=== PATIENT | female | born 1985 | race American Indian/Alaskan Native ===

== ENCOUNTER 2017-07-28 20:17 | Emergency (ER) | payer SELFPAY ==
--- NOTE | 2017-07-29 02:50 | Emergency Department Report ---
ED Extremity Problem HPI - General Chief complaint: Extremity Problem,Nontraumatic Stated complaint: LEFT FOOT PAIN Time Seen by Provider: 07/29/17 02:41 Source: patient, family Mode of arrival: Wheelchair Limitations: No Limitations - History of Present Illness Initial comments: Patient airport in left foot pain and denies any trauma. She said the pain is 5 out of 10 and it's located at her plantar aspect of her foot and radiated in to midfoot laterally.Denies any fever or chills. Eyes any blunt trauma to foot. She said the pain when he came on was a burning pain. Patient has a history of heart murmur and first-degree heart block. She does not have a history of diabetes or neuropathy. He took [id number] pain medication but did not help. MD Complaint: extremity pain -: This morning Location: left, lower extremity History of Same: No -: No myalgia, Yes arthralgia, No fever, No associated dyspnea, No associated chest pain Radiation: none Severity scale (0 -10): 5 Quality: burning, aching Consistency: intermittent Improves with: rest Worsens with: weight bearing, walking Associated Symptoms: arthralgias. denies: chest pain, shortness of breath, fever, myalgias, rash - Related Data Previous Rx's Medication Instructions Recorded Last Taken Type Ibuprofen [Motrin] 800 mg PO Q8HR PRN #15 tablet 12/16/15 Unknown Rx Ibuprofen [Motrin] 600 mg PO Q8H PRN #15 tablet 07/29/17 Unknown Rx Allergies Allergy/AdvReac Type Severity Reaction Status Date / Time No Known Allergies Allergy Unverified 12/16/15 16:59 ED Review of Systems ROS: Stated complaint: LEFT FOOT PAIN Other details as noted in HPI Comment: All other systems reviewed and negative Constitutional: denies: chills, fever Respiratory: no symptoms reported Cardiovascular: denies: chest pain, palpitations, edema, syncope Gastrointestinal: denies: abdominal pain, nausea, vomiting, diarrhea, constipation Musculoskeletal: back pain, arthralgia. denies: joint swelling, myalgia Skin: denies: rash Neurological: denies: headache, weakness, numbness, paresthesias, confusion, abnormal gait, vertigo ED Past Medical Hx - Past Medical History Previous Medical History?: Yes Additional medical history: HEART MURMUR. First-degree heart block - Surgical History Past Surgical History?: No - Family History Family history: no significant - Social History Smoking Status: Never Smoker Substance Use Type: None - Medications Home Medications: Home Medications Medication Instructions Recorded Confirmed Last Taken Type Ibuprofen [Motrin] 800 mg PO Q8HR PRN #15 tablet 12/16/15 Unknown Rx Ibuprofen [Motrin] 600 mg PO Q8H PRN #15 tablet 07/29/17 Unknown Rx ED Physical Exam - General Limitations: No Limitations General appearance: alert, in no apparent distress - Head Head exam: Present: atraumatic, normocephalic, normal inspection - Eye Eye exam: Present: normal appearance, PERRL, EOMI. Absent: periorbital swelling , periorbital tenderness Pupils: Present: normal accommodation - ENT ENT exam: Present: normal exam, normal orophraynx, mucous membranes moist - Neck Neck exam: Present: normal inspection, full ROM. Absent: tenderness, meningismus, lymphadenopathy - Respiratory Respiratory exam: Present: normal lung sounds bilaterally. Absent: respiratory distress, wheezes, chest wall tenderness, accessory muscle use - Cardiovascular Cardiovascular Exam: Present: regular rate, normal rhythm, normal heart sounds - GI/Abdominal GI/Abdominal exam: Present: soft, normal bowel sounds. Absent: distended, tenderness, guarding, rebound, rigid - Extremities Exam Extremities exam: Present: normal inspection, full ROM, tenderness (left foot plantar aspect ), normal capillary refill, other (all extremities with 2+ pulses. Her vascular compromise and full range of motion. No joint deformity or anomaly.). Absent: pedal edema, joint swelling, calf tenderness - Expanded Lower Extremity Exam Left Hip exam: Present: normal inspection, full ROM, pelvic stability. Absent: tenderness, swelling, abrasion, laceration, ecchymosis, deformity, crepidus, dislocation, erythema, external rotation, internal rotation, shortening Upper Leg exam: Present: normal inspection, full ROM. Absent: tenderness, swelling, abrasion, laceration, ecchymosis, deformity, crepidus, dislocation, erythema Knee exam: Present: normal inspection, full ROM, full knee extension. Absent: tenderness, swelling, abrasion, laceration, ecchymosis, deformity, crepidus, dislocation, erythema, effusion, pain w/ pronation/supination, posterior draw sign, pain/laxity with valgus, pain/laxity with varus Lower Leg exam: Present: normal inspection, full ROM. Absent: tenderness, swelling, abrasion, laceration, ecchymosis, deformity, crepidus, dislocation, erythema, palpable cord, Caridad's sign Ankle exam: Present: normal inspection, full ROM. Absent: tenderness, swelling , abrasion, laceration, ecchymosis, deformity, crepidus, dislocation, erythema, anterior draw sign Foot/Toe exam: Present: normal inspection, full ROM, tenderness (plantar fascia area left foot). Absent: swelling, abrasion, laceration, ecchymosis, deformity , crepidus, dislocation, erythema, amputation, puncture wound, foreign body, calcaneal tenderness, tenderness at base of 5th metatarsal, nail avulsion, subungual hematoma Neuro vascular tendon exam: Present: no vascular compromise. Absent: pulse deficit, abnormal cap refill, motor deficit, sensory deficit, tendon deficit, extremity cold to touch, pallor, abnormal 2-point discrimination, decreased fine /light touch, foot drop, peroneal nerve deficit, significant pain with passive ROM of distal joint Gait: Positive: observed and limited by pain - Back Exam Back exam: Present: normal inspection, full ROM. Absent: tenderness, CVA tenderness (R), CVA tenderness (L), muscle spasm, paraspinal tenderness, vertebral tenderness, rash noted - Neurological Exam Neurological exam: Present: alert, oriented X3, normal gait, reflexes normal. Absent: motor sensory deficit - Psychiatric Psychiatric exam: Present: normal affect, normal mood - Skin Skin exam: Present: warm, dry, intact, normal color. Absent: rash ED Course Vital Signs 07/28/17 21:02 Temperature 98.4 F Pulse Rate 84 Respiratory 16 Rate Blood Pressure 134/74 O2 Sat by Pulse 100 Oximetry - Reevaluation(s) Reevaluation #1: 07/29/17 02:53 Given Motrin 800 mg 1 tablet. Emergency room for foot pain ED Medical Decision Making - Medical Decision Making Course: Here complaining of left foot pain that started this morning. It is mostly to left plantar aspect of foot. Mild swelling to heal a foot plantar. Tenderness to palpate over plantar fascia. Patient given Motrin 800 mg emergency room for left foot pain. The patient that this is inflammation and she can wear a foot brace, take Motrin as needed for pain and also apply ice to area. It was sinus in the discharge diagnoses and treatment plan and discharged home in stable condition Assessment/plan 1. Left foot pain 2. Plantar fasciitis left foot Patient's instructed to follow-up with Dr. East who is a foot doctor and she was given a prescription for Motrin when necessary for pain. Discharge instruction given on plantar fasciitis Critical care attestation.: If time is entered above; I have spent that time in minutes in the direct care of this critically ill patient, excluding procedure time. ED Disposition Clinical Impression: Plantar fasciitis of left foot, Arthralgia of left foot Disposition: TO HOME OR SELFCARE Is pt being admited?: No Does the pt Need Aspirin: No Condition: Stable Instructions: Arthralgia (ED), Plantar Fasciitis (ED) Additional Instructions: Follow-up with doctor as instructed can use ice to relieve pain Take Motrin as prescribed as well as anti-inflammatory Prescriptions: Ibuprofen [Motrin] 600 mg PO Q8H PRN #15 tablet PRN Reason: Pain Referrals: IRENE PACHECO DPM [Staff Physician] - 2-3 Days Forms: Accompanied Note, Work/School Release Form(ED)
[2017-07-29] MEDS ORDERED: MOTRIN PO ONE (02:53)
[2017-07-29 03:38] VITALS: BP 127/72
== END 2017-07-29 03:38 | disposition home or self-care (01) ==
LOC: ED 20:17
DX: M72.2 Plantar fascial fibromatosis (principal); M79.672 Pain in left foot
CPT/HCPCS: 99282